=== PATIENT | male | born 1965 | race Caucasian/White ===

== ENCOUNTER 2016-12-27 12:04 | Emergency (ER) | payer OTHER ==
[2016-12-27] MEDS ORDERED: HYDROmorphone HCL CARPU-JECT 1 MG/1 ML DISP.SYRIN IVPUSH ONE (12:10)
--- NOTE | 2016-12-27 12:10 | PDOC ---
History of Present Illness - General Chief Complaint: Pain, Acute Stated Complaint: POSSIBLE RIGHT HIP DISLOCATION Time Seen by Provider: 12/27/16 12:09 History Source: Patient Exam Limitations: No Limitations - History of Present Illness Initial Comments: 12/27/16 12:09 The patient is a 51-year-old male with a significant past medical history of right total hip replacement, multiple right hip dislocations, who presents to the emergency department with a suspected right hip dislocation. He states that he was changing position, and felt a "click" followed by pain at the right hip. The symptoms are similar to his previous episodes of dislocation. He describes the pain as a moderate dull ache, and is worsened by movement. He denies blunt trauma. He is chronically insensate below the bilateral knees. 12/27/16 13:07 Past History - Past Medical History Allergies/Adverse Reactions: Allergies Allergy/AdvReac Type Severity Reaction Status Date / Time No Known Allergies Allergy Verified 12/27/16 12:07 Home Medications: Ambulatory Orders NK [No Known Home Medication] 12/27/16 Anemia: No Asthma: No Cancer: No Cardiac Disorders: No CVA: No COPD: No CHF: No Dementia: No Diabetes: No GI Disorders: No Disorders: No HTN: No Hypercholesterolemia: No Kidney Stones: No Liver Disease: No Suicide Attempt (Hx): No Seizures: No Thyroid Disease: No - Surgical History Orthopedic Surgery: Yes (BILATERAL HIP REPLACEMENT L KNEE REPLACEMENT) - Reproductive History Testicular Surgery: No - Psycho/Social/Smoking Cessation Hx Anxiety: No Suicidal Ideation: No Smoking History: Current every day smoker Have you smoked in the past 12 months: Yes Number of Cigarettes Smoked Daily: 10 Cigars Per Day: 0 'Breaking Loose' booklet given: 04/12/15 Hx Alcohol Use: No Drug/Substance Use Hx: Yes Substance Use Type: Heroin Hx Substance Use Treatment: Yes Review of Systems - Review of Systems Comments:: CONSTITUTIONAL: Absent: fever, chills, fatigue EYES: Absent: visual changes ENT: Absent: ear pain, sore throat CARDIOVASCULAR: Absent: chest pain, palpitations, loss of consciousness RESPIRATORY: Absent: cough, SOB GI: Absent: abdominal pain, nausea, vomiting, constipation, diarrhea GENITOURINARY: Absent: dysuria, frequency, hematuria MUSKULOSKELETAL: Present: See history of present illness SKIN: Absent: rash NEURO: Absent: headache, dizziness *Physical Exam - Physical Exam Comments: 12/27/16 12:10 GENERAL: Well-appearing, well-nourished. No apparent distress. HEENT: Normocephalic, atraumatic. PERRL, EOM intact. CARDIOVASCULAR: Normal S1, S2. Regular rate and rhythm. PULMONARY: Clear to auscultation bilaterally. ABDOMEN: Soft, non-distended, non-tender. EXTREMITIES: There is pain at the right hip with any range of motion. There is pain at the right hip with palpation. SKIN: Warm, dry. No rash NEUROLOGICAL: No focal neurological deficits. 12/27/16 12:11 Medical Decision Making - Medical Decision Making 12/27/16 12:11 He is well-appearing and in no acute distress Will provide analgesia Will obtain x-ray of the hip I have no suspicion of fracture given the mechanism 12/27/16 12:49 X-ray emergency Department interpretation: Confirmation of hip dislocation After the administration of 1 mg of IV Dilaudid, using the "Captain Frandy technique" I was able to reduce the hip 12/27/16 13:07 Post reduction film confirms reduction Clinical impression: Hip dislocation, now reduced I discussed the physical exam findings, ancillary test results and final diagnoses with the patient. I answered all of the patient's questions. The patient was satisfied with the care received and felt comfortable with the discharge plan and treatment plan. The patient will call their primary care physician within 24 hours to arrange follow-up and will return to the Emergency Department with any new, persistent or worsening symptoms. *DC/Admit/Observation/Transfer Diagnosis at time of Disposition: Hip dislocation, right - Discharge Dispostion Disposition: HOME Condition at time of disposition: Improved - Patient Instructions Printed Discharge Instructions: DI for Hip Dislocation -- Adult Additional Instructions: Return to the emergency department immediately with ANY new, persistent or worsening symptoms. You MUST call and follow up with your doctor tomorrow. Please make sure your doctor reviews the results of your emergency department evaluation.
[2016-12-27 12:16] VITALS: TEMP 98.8; BMI 25.1
[2016-12-27] MEDS ORDERED: HYDROmorphone HCL CARPU-JECT 1 MG/1 ML DISP.SYRIN ONE (12:25)
[2016-12-27] MEDS ORDERED: ETOMIDATE 20 MG/10 ML AMPUL IVPUSH ONE (12:43)
[2016-12-27] MEDS ORDERED: ETOMIDATE 40 MG/20 ML VIAL IVPUSH ONE (12:45)
[2016-12-27 13:23] VITALS: BP 174/100; PULSE 84
== END 2016-12-27 13:16 | disposition home or self-care (01) ==
LOC: FER 12:04
PROC: 0SS9XZZ Reposition Right Hip Joint, External Approach (ICD-10-PCS; principal; 2016-12-27)
DX: M24.451 Recurrent dislocation, right hip (principal); X58.XXXA Exposure to other specified factors, initial encounter; Y93.89 Activity, other specified; Y92.9 Unspecified place or not applicable; Z96.643 Presence of artificial hip joint, bilateral; Z96.652 Presence of left artificial knee joint; F17.210 Nicotine dependence, cigarettes, uncomplicated
CPT/HCPCS: 27252; 73502-TC-RT; 99283-25

== ENCOUNTER 2017-03-12 08:13 | Emergency (ER) | payer OTHER ==
[2017-03-12 08:18] VITALS: BP 135/76; PULSE 82; TEMP 98.3; BMI 29.2
[2017-03-12] MEDS ORDERED: morphine CARPU-JECT 4 MG/1 ML DISP.SYRIN IVPUSH ONE (08:29)
[2017-03-12] MEDS ORDERED: morphine CARPU-JECT 4 MG/1 ML DISP.SYRIN ONE (08:41)
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
[2017-03-12] MEDS ORDERED: HYDROmorphone HCL CARPU-JECT 1 MG/1 ML DISP.SYRIN ONE (09:48)
[2017-03-12] MEDS ORDERED: HYDROmorphone HCL CARPU-JECT 1 MG/1 ML DISP.SYRIN IVPUSH ONE (09:48)
== END 2017-03-12 10:46 | disposition home or self-care (01) ==
LOC: FER 08:13
PROC: 3E033NZ Introduction of Analgesics, Hypnotics, Sedatives into Peripheral Vein, Percutaneous Approach (ICD-10-PCS; principal; 2017-03-12)
PROC: 0SW9XJZ Revision of Synthetic Substitute in Right Hip Joint, External Approach (ICD-10-PCS; 2017-03-12)
DX: S73.004A Unspecified dislocation of right hip, initial encounter (principal); T84.020A Dislocation of internal right hip prosthesis, initial encounter; W18.11XA Fall from or off toilet without subsequent striking against object, initial encounter; Y93.89 Activity, other specified; Y92.002 Bathroom of unspecified non-institutional (private) residence as the place of occurrence of the external cause; Z96.643 Presence of artificial hip joint, bilateral; Z96.652 Presence of left artificial knee joint; F17.210 Nicotine dependence, cigarettes, uncomplicated
CPT/HCPCS: 27266; 73523-TC; 96374; 96375; 99281-25

== ENCOUNTER 2018-04-29 20:51 | Emergency (ER) | payer OTHER ==
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
[2018-04-29 21:18] VITALS: BP 131/84; PULSE 98; TEMP 98.5; BMI 27.6
[2018-04-29] MEDS ORDERED: MIDAZOLAM HCL 2 MG/2 ML SINGLE DOSE VIAL IVPUSH ONE (21:59)
[2018-04-29] MEDS ORDERED: MIDAZOLAM HCL 2 MG/2 ML SINGLE DOSE VIAL ONE (22:02)
== END 2018-04-29 22:13 | disposition home or self-care (01) ==
LOC: FER 20:51
PROC: 0SS9XZZ Reposition Right Hip Joint, External Approach (ICD-10-PCS; principal; 2018-04-29)
PROC: 2W3QX1Z Immobilization of Right Lower Leg using Splint (ICD-10-PCS; 2018-04-29)
DX: S73.004A Unspecified dislocation of right hip, initial encounter (principal); X58.XXXA Exposure to other specified factors, initial encounter; Y93.89 Activity, other specified; Y92.9 Unspecified place or not applicable; Z87.828 Personal history of other (healed) physical injury and trauma; M24.451 Recurrent dislocation, right hip; F17.210 Nicotine dependence, cigarettes, uncomplicated
CPT/HCPCS: 27252; 29515; 73030-TC-RT-FY; 73523-TC-FY; 99282-25

== ENCOUNTER 2018-08-29 20:58 | Emergency (ER) | payer BC, OTHER ==
[2018-08-29 21:04] VITALS: BP 115/86; PULSE 90; TEMP 98; BMI 25.1
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
== END 2018-08-29 22:01 | disposition home or self-care (01) ==
LOC: FER 20:58
DX: S73.004A Unspecified dislocation of right hip, initial encounter (principal); F17.210 Nicotine dependence, cigarettes, uncomplicated; Z96.652 Presence of left artificial knee joint; Z96.643 Presence of artificial hip joint, bilateral
CPT/HCPCS: 73502-TC-RT-FY; 99281-25

== ENCOUNTER 2018-12-29 10:02 | Emergency (ER) | payer BC ==
--- NOTE | 2018-12-29 10:19 | PDOC ---
History of Present Illness - General Chief Complaint: Pain Stated Complaint: RIGHT HIP PAIN Time Seen by Provider: 12/29/18 10:04 History Source: Patient Exam Limitations: No Limitations - History of Present Illness Initial Comments: 12/29/18 10:16 53 y/o male with right hip dislocation today, has a hx of this, was bending and popped out this morning.Denies fall or trauma. has not taken anything for the pain. No weakness. Unable to walk on it. Timing/Duration: 1 hour Past History - Past Medical History Allergies/Adverse Reactions: Allergies Allergy/AdvReac Type Severity Reaction Status Date / Time No Known Allergies Allergy Verified 12/29/18 10:03 Home Medications: Ambulatory Orders NK [No Known Home Medication] 12/27/16 Anemia: No Asthma: No Cancer: No Cardiac Disorders: No CVA: No COPD: No CHF: No Dementia: No Diabetes: No GI Disorders: No Disorders: No HTN: No Hypercholesterolemia: No Kidney Stones: No Liver Disease: No Seizures: No Thyroid Disease: No - Surgical History Orthopedic Surgery: Yes (BILATERAL HIP REPLACEMENT L KNEE REPLACEMENT) - Reproductive History Testicular Surgery: No - Suicide/Smoking/Psychosocial Hx Smoking History: Current every day smoker Have you smoked in the past 12 months: Yes Number of Cigarettes Smoked Daily: 10 Cigars Per Day: 0 'Breaking Loose' booklet given: 03/12/17 Hx Alcohol Use: No Drug/Substance Use Hx: Yes Substance Use Type: Heroin Hx Substance Use Treatment: Yes Review of Systems - Review of Systems Able to Perform ROS?: Yes Is the patient limited Bengali proficient: No Constitutional: No: Chills, Fever Respiratory: No: Cough, Shortness of Breath ABD/GI: No: Nausea, Vomiting Musculoskeletal: Yes: Joint Pain Integumentary: No: Bruising All Other Systems: Reviewed and Negative *Physical Exam - Physical Exam General Appearance: Yes: Nourished, Appropriately Dressed. No: Apparent Distress HEENT: positive: EOMI, MYNOR, Normal ENT Inspection, Normal Voice Neck: positive: Trachea midline, Normal Thyroid, Supple. negative: Tender, Rigid Respiratory/Chest: positive: Lungs Clear, Normal Breath Sounds. negative: Chest Tender Cardiovascular: positive: Regular Rhythm, Regular Rate, S1, S2. negative: Edema , JVD, Murmur Vascular Pulses: Femoral (R): 4+, Femoral (L): 4+, Carotid (R): 4+, Carotid (L) : 4+, Dorsalis-Pedis (R): 4+, Doralis-Pedis (L): 4+ Gastrointestinal/Abdominal: positive: Normal Bowel Sounds, Flat, Soft. negative : Tender, Organomegaly Lymphatic: negative: Adenopathy, Tenderness, Other Musculoskeletal: positive: Normal Inspection. negative: CVA Tenderness Extremity: positive: Normal Capillary Refill, Pelvis Stable. 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 Mirza and hip reduced. Pt given Toradol 60 mg IM and Valium 5 mg po Patient feeling well, will be placed in knee immobilizer and no bending Crutches, weight bearing as tolerated Follow up with Orthopedics - RADIOLOGY Radiology Studies Ordered: Category Date Time Status HIP-RIGHT [RAD] Stat Radiology 12/29/18 10:15 Ordered *DC/Admit/Observation/Transfer Diagnosis at time of Disposition: Hip dislocation, right Qualifiers: Encounter type: initial encounter Qualified Code(s): S73.004A - Unspecified dislocation of right hip, initial encounter - Discharge Dispostion Disposition: HOME Condition at time of disposition: Improved Decision to Admit order: No - Referrals - Patient Instructions Printed Discharge Instructions: DI for Hip Dislocation -- Adult Additional Instructions: Knee immobilizer rest, no bending Crutches for cherri bearing Tylenol or Motrin for pain Follow up with Orthopedics If worsen return to ER - Post Discharge Activity
[2018-12-29 10:33] VITALS: BP 147/94; PULSE 99; TEMP 97.7
[2018-12-29] MEDS ORDERED: KETOROLAC TROMETHAMINE 60 MG/2 ML VIAL IM ONE (10:50)
[2018-12-29] MEDS ORDERED: diazePAM 5 MG TABLET PO ONE (10:51)
[2018-12-29] MEDS ORDERED: KETOROLAC TROMETHAMINE 60 MG/2 ML VIAL ONE (10:51)
[2018-12-29] MEDS ORDERED: diazePAM 5 MG TABLET ONE (10:52)
[2018-12-29 12:01] VITALS: BMI 25.1
--- NOTE | 2018-12-29 12:21 | CONSULT ---
Consult - text type - Consultation Consultation Note: ORTHOPEDIC SURGERY CONSULTATION NOTE Department of Orthopedic Surgery HISTORY OF PRESENT ILLNESS Mr. Gaspar is a 53 year old male who presents to [facility] ER with a right total hip dislocation. The orthopedic service was consulted for right hip dislocation. The injury occurred at home when he bent over. The patient notes pain in his right hip and he feels like it has dislocated as it has in the past. Denies any other injuries. Denies numbness, tingling or other constitutional complaints. Endorses tobacco use, drug use, alcohol abuse. 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 FAMILY HISTORY non-contributory REVIEW OF SYMPTOMS A twelve-point review of systems was performed and was negative except as noted in HPI. PHYSICAL EXAM Constitutional: Alert and oriented to person, place, and time. Appears well- developed and well-nourished. No acute distress, appropriate mood and affect. Right Upper Extremity: Skin warm, dry, and intact; no lesions, rashes or ulcers noted. Muscle mass equal and symmetric to contralateral side. No atrophy noted. No masses or effusions noted. No tenderness to palpation all joints; nontender throughout rest of extremity. Full passive and active ROM, free from pain. Joints stable with no pathologic laxity. M/R/U/MSK/AX motor intact; SILT distally; 2+ radial pulses; Cap refill brisk. Tone and reflexes normal. Left Upper Extremity: Skin warm, dry, and intact; no lesions, rashes or ulcers noted. Muscle mass equal and symmetric to contralateral side. No atrophy noted. No masses or effusions noted. No tenderness to palpation all joints; nontender throughout rest of extremity. Full passive and active ROM, free from pain. Joints stable with no pathologic laxity. M/R/U/MSK/AX motor intact; SILT distally; 2+ radial pulses; Cap refill brisk. Tone and reflexes normal. Right Lower Extremity: Skin warm, dry, and intact; no lesions, rashes or ulcers noted. Muscle mass equal and symmetric to contralateral side. No atrophy noted. No masses or effusions noted. Tender to palpation at the greater trochanter; nontender throughout rest of extremity. No cords or calf tenderness. No significant calf/ankle edema. LROM of the hip; Internally rotated and shortened extremety. Full passive and active ROM of the knee, free from pain. Joints stable with no pathologic laxity. + foot drop (chronic) 2+ DP pulses; Cap refill brisk. Left Lower Extremity: Skin warm, dry, and intact; no lesions, rashes or ulcers noted. Muscle mass equal and symmetric to contralateral side. No atrophy noted. No masses or effusions noted. No tenderness to palpation all joints; nontender throughout rest of extremity. No cords or calf tenderness. No significant calf/ ankle edema. Full passive and active ROM, free from pain. Joints stable with no pathologic laxity. + foot drop (chronic) 2+ DP pulses; Cap refill brisk. Social History Smoking history Current every day smoker Aproximately how many 10 cigarettes per day Hx Alcohol Use No Allergies Allergy/AdvReac Type Severity Reaction Status Date / Time No Known Allergies Allergy Verified 12/29/18 10:03 Vital Signs (last) Temp Pulse Resp BP Pulse Ox 97.7 F 99 H 18 147/94 99 12/29/18 10:02 12/29/18 10:02 12/29/18 10:02 12/29/18 10:02 12/29/18 10:02 Intake and Output 12/27/18 12/28/18 12/29/18 23:59 23:59 23:59 Other: Weight 180 lb Height 5 ft 11 in Body Mass Index (BMI) 25.1 IMAGING I personally reviewed all radiographs, CT, and other imaging. They demonstrate a right total hip dislocation; Post-reduction X-ray: Adequately reduced right total hip with no fractures or loosening seen. ASSESSMENT AND PLAN Mr. Gaspar is a 53 year old male presenting with a right sided total hip dislocation, now reduced. We have reviewed the imaging and clinical findings in detail, as well as their potential implications. After appropriate informed discussion, we agreed on the following plan: - Pain control - No bending / Internal Rotation - Knee immobilizer - Follow up with joint replacement surgeon for possible revision as outpatient - No further orthopedic surgical intervention at this time. PROCEDURE NOTE: After informed consent, we proceeded to attempt a reduction maneuver on the patient's right hip dislocation. We flexed the knee and applied traction, and felt a clunk of the hip reducing back into position. The patient immediately felt relief and we placed him in a knee immobilizer. His exam post reduction was unchanged. All questions were answered. Thank you for involving our team in the care of this patient. Pramod Mirza, DO
== END 2018-12-29 12:47 | disposition home or self-care (01) ==
LOC: FER 10:02
PROC: 0SS9XZZ Reposition Right Hip Joint, External Approach (ICD-10-PCS; principal; 2018-12-29)
DX: S73.004A Unspecified dislocation of right hip, initial encounter (principal); X58.XXXA Exposure to other specified factors, initial encounter; Y93.89 Activity, other specified; Y92.89 Other specified places as the place of occurrence of the external cause
CPT/HCPCS: 73502-TC-RT-FY; 99284-25

== ENCOUNTER 2019-04-17 13:30 | Emergency (ER) | payer BC ==
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
[2019-04-17 13:49] VITALS: BP 152/83; PULSE 78; TEMP 98.1; BMI 24.9
== END 2019-04-17 14:02 | disposition home or self-care (01) ==
LOC: FER 13:30
PROC: 2W3QX1Z Immobilization of Right Lower Leg using Splint (ICD-10-PCS; principal; 2019-04-17)
DX: M24.451 Recurrent dislocation, right hip (principal); X58.XXXA Exposure to other specified factors, initial encounter; Y93.89 Activity, other specified; Y92.89 Other specified places as the place of occurrence of the external cause; Z96.652 Presence of left artificial knee joint; Z96.643 Presence of artificial hip joint, bilateral; F17.210 Nicotine dependence, cigarettes, uncomplicated
CPT/HCPCS: 99282-25

== ENCOUNTER 2023-03-12 14:30 | Emergency (ER) | payer BC ==
[2023-03-12 14:48] VITALS: BP 145/90; PULSE 87; RESP 16; TEMP 98; BMI 25.1
== END 2023-03-12 15:54 | disposition home or self-care (01) ==
LOC: FER 14:30
PROC: 0SS9XZZ Reposition Right Hip Joint, External Approach (ICD-10-PCS; principal; 2023-03-12)
DX: T84.020A Dislocation of internal right hip prosthesis, initial encounter (principal); X58.XXXA Exposure to other specified factors, initial encounter
CPT/HCPCS: 27265; 72170-TC-FY; 73502-TC-RT-FY; 99283-25

== ENCOUNTER 2023-07-06 10:40 | Emergency (ER) | payer BC ==
[2023-07-06 10:55] VITALS: BP 125/81; PULSE 118; RESP 18; TEMP 98; BMI 27.1
== END 2023-07-06 11:53 | disposition home or self-care (01) ==
LOC: FER 10:40
PROC: 0SR9069 Replacement of Right Hip Joint with Oxidized Zirconium on Polyethylene Synthetic Substitute, Cemented, Open Approach (ICD-10-PCS; principal; 2023-07-06)
DX: T84.020A Dislocation of internal right hip prosthesis, initial encounter (principal); M25.551 Pain in right hip; X50.1XXA Overexertion from prolonged static or awkward postures, initial encounter; Y92.009 Unspecified place in unspecified non-institutional (private) residence as the place of occurrence of the external cause
CPT/HCPCS: 27265; 73502-TC-RT-FY; 99283-25